=== PATIENT | male | born 1935 | race Caucasian/White ===

== ENCOUNTER 2018-01-02 22:26 | Observation (INO) | payer MEDICARE, OTHER, MEDICAID ==
[2018-01-02 23:52] LABS: ADD MAN DIFF? NO
[2018-01-02 23:54] LABS: BASOPHIL # 0.1 10^3/ul (0.0-0.1); BASOPHILS % 0.7 % (0.0-2.0); EOSINOPHILS # 0.3 10^3/ul (0.0-0.5); EOSINOPHILS % 2.3 % (0.0-7.0); HEMATOCRIT 45.2 % (42.0-52.0); HEMOGLOBIN 14.8 g/dl (14.0-18.0); LYMPHOCYTES % 46.4 % (15.0-51.0); MEAN CORPUSCULAR HEMOGLOBIN 29.1 pg (29.0-33.0); MEAN CORPUSCULAR HGB CONC 32.7 g/dl (32.0-37.0); MEAN CORPUSCULAR VOLUME 88.8 fl (82.0-101.0); MEAN PLATELET VOLUME 11.3 fl (7.4-10.4); MONOCYTES % 8.9 % (0.0-11.0); NEUTROPHIL # 4.4 10^3/ul (1.6-7.5); NEUTROPHILS % 41.2 % (39.0-77.0); PLATELET COUNT 234 10^3/UL (140-415); RED BLOOD COUNT 5.09 10^6/ul (4.70-6.10); RED CELL DISTRIBUTION WIDTH 12.4 % (11.5-14.5)
[2018-01-02 23:54] LABS: WHITE BLOOD COUNT 10.7 10^3/ul (4.8-10.8)
[2018-01-03 00:12] LABS: INR 0.88; PT RATIO 0.9
[2018-01-03 00:13] LABS: PARTIAL THROMBOPLASTIN TIME 29.1 Sec (25.0-35.0)
[2018-01-03 00:15] LABS: ANION GAP 13 (8-16); BLOOD UREA NITROGEN 19 mg/dl (7-20); CALCIUM 9.1 mg/dl (8.4-10.2); CARBON DIOXIDE 27 mmol/L (21-31); CHLORIDE 106 mmol/L (97-110); CREATININE 1.05 mg/dl (0.61-1.24); GLUCOSE 123 mg/dl (70-220); MAGNESIUM 2.2 mg/dl (1.7-2.5); SODIUM 142 mmol/L (135-144)
[2018-01-03 00:26] LABS: TROPONIN-I 0.024 ng/ml (0.000-0.120)
[2018-01-03] MEDS: ASPIRIN 325 MG TAB PO (01:22)
[2018-01-03] MEDS ORDERED: NACL 0.9% 3 ML SYG IV (01:30)
[2018-01-03] MEDS ORDERED: ACETAMINOPHEN 325 MG TAB PO (01:30)
[2018-01-03] MEDS ORDERED: ONDANSETRON 4 MG INJ IV (01:30)
[2018-01-03] MEDS ORDERED: BISACODYL (EC) 5 MG TAB PO (01:30)
[2018-01-03 07:16] LABS: ADD MAN DIFF? NO
[2018-01-03 07:23] LABS: BASOPHIL # 0.1 10^3/ul (0.0-0.1); BASOPHILS % 0.6 % (0.0-2.0); EOSINOPHILS # 0.2 10^3/ul (0.0-0.5); EOSINOPHILS % 2.5 % (0.0-7.0); HEMATOCRIT 43.3 % (42.0-52.0); LYMPHOCYTES # 2.9 10^3/ul (0.8-2.9); LYMPHOCYTES % 33.1 % (15.0-51.0); MEAN CORPUSCULAR HEMOGLOBIN 28.9 pg (29.0-33.0); MEAN CORPUSCULAR HGB CONC 32.3 g/dl (32.0-37.0); MEAN CORPUSCULAR VOLUME 89.3 fl (82.0-101.0); MEAN PLATELET VOLUME 10.9 fl (7.4-10.4); MONOCYTE # 0.9 10^3/ul (0.3-0.9); MONOCYTES % 10.7 % (0.0-11.0); NEUTROPHIL # 4.6 10^3/ul (1.6-7.5); NEUTROPHILS % 52.6 % (39.0-77.0); PLATELET COUNT 250 10^3/UL (140-415); RED BLOOD COUNT 4.85 10^6/ul (4.70-6.10); RED CELL DISTRIBUTION WIDTH 12.3 % (11.5-14.5)
[2018-01-03 07:23] LABS: WHITE BLOOD COUNT 8.8 10^3/ul (4.8-10.8)
[2018-01-03 07:48] LABS: HEMOGLOBIN A1C 5.9 % (0-5.9)
[2018-01-03 07:53] LABS: ALANINE AMINOTRANSFERASE 32 IU/L (13-69); ALBUMIN 3.6 g/dl (3.3-4.9); ALBUMIN/GLOBULIN RATIO 0.94; ALKALINE PHOSPHATASE 68 IU/L (42-121); ANION GAP 11 (8-16); ASPARTATE AMINO TRANSFERASE 32 IU/L (15-46); BILIRUBIN,INDIRECT 0.3 mg/dl (0-1.1); BILIRUBIN,TOTAL 0.3 mg/dl (0.2-1.3); BLOOD UREA NITROGEN 18 mg/dl (7-20); CALCIUM 8.4 mg/dl (8.4-10.2); CARBON DIOXIDE 25 mmol/L (21-31); CHLORIDE 109 mmol/L (97-110); CHOLESTEROL 197 mg/dl (100-200); CREATININE 0.87 mg/dl (0.61-1.24); GLUCOSE 94 mg/dl (70-220); HDL CHOLESTEROL 39 mg/dl (31-75); LDL CHOLESTEROL,CALCULATED 113 mg/dl; MAGNESIUM 2.2 mg/dl (1.7-2.5); POTASSIUM 3.8 mmol/L (3.5-5.1); SODIUM 141 mmol/L (135-144); TOTAL PROTEIN 7.4 g/dl (6.1-8.1); TRIGLYCERIDES 223 mg/dl (0-149)
[2018-01-03] MEDS: DOCUSATE SODIUM 100 MG CAP PO (22:02)
[2018-01-04] MEDS: ASPIRIN (EC) 325 MG TAB PO (08:46)
[2018-01-04 10:25] LABS: ERYTHROCYTE SEDIMENTATION RATE 18 mm/Hr (0-20)
[2018-01-04] MEDS: hydrALAzine 20 MG INJ IV (12:28)
[2018-01-04] MEDS: AMLODIPINE 5 MG TAB PO (13:28)
[2018-01-04 15:39] LABS: RAPID PLASMA REAGIN NONREACTIVE (NR)
[2018-01-04] MEDS ORDERED: ATORVASTATIN 40 MG TAB PO (21:00)
== END 2018-01-04 14:52 | disposition home or self-care (01) ==
LOC: E/R 22:26 → TEL 01-03 01:19
PROVIDERS: Family Medicine
DX: R53.1 Weakness (principal); I10 Essential (primary) hypertension; Z95.1 Presence of aortocoronary bypass graft; I25.10 Atherosclerotic heart disease of native coronary artery without angina pectoris; Z86.73 Personal history of transient ischemic attack (TIA), and cerebral infarction without residual deficits
CPT/HCPCS: 36415; 70450; 70544; 70548; 70551; 71045; 80048; 80053; 80061; 82962; 83036; 83735; 84443; 84484; 85025; 85610; 85651; 85730; 86592; 92610; 93005; 93306; 97161; 99285-25; G0378